=== PATIENT | male | born 1970 | race African-American/Black ===

== ENCOUNTER 2021-05-12 20:12 | Emergency (ER) | payer OTHER ==
[2021-05-12] MEDS ORDERED: Ketorolac 60 MG/2 ML SDV IM ONE (21:58)
[2021-05-12] MEDS ORDERED: Diphtheria,Pertussis(Acell),Tetanus Vaccine 0.5 ML Syringe IM ONE (21:58)
--- NOTE | 2021-05-12 22:00 | EDM.PDOC ---
ED HPI GENERAL MEDICAL PROBLEM - General Chief Complaint: Burn Stated Complaint: BURN RT ARM Time Seen by Provider: 05/12/21 21:51 Source of Information: Reports: Patient History Limitations: Reports: No Limitations - History of Present Illness INITIAL COMMENTS - FREE TEXT/NARRATIVE: HISTORY AND PHYSICAL: History of present illness: The patient is a 50-year-old male who presents to the emergency department with complaints of and a right forearm burn that he sustained at 6:30 PM this evening while taking a radiator cap off of his semi-. The patient states that he was sprayed with the radiator fluid which he then rinsed off and helped a cool cloth on the area. He did not take any medication prior to his arrival and he is unsure when his last tetanus was. Review of systems: As per history of present illness and below otherwise all systems reviewed and negative. Past medical history: As per history of present illness and as reviewed below otherwise noncontributor y. Surgical history: As per history of present illness and as reviewed below otherwise noncontributory. Social history: See social history for further information Family history: As per history of present illness and as reviewed below otherwise noncontributory. Physical exam: General: Well developed and well nourished. Alert and orientated x 3. Nontoxic in appearance and in no acute distress. Vital signs are stable and have been reviewed by me. Nursing notes were reviewed. HEENT: Atraumatic, normocephalic, pupils equal and reactive bilaterally, negative for conjunctival pallor or scleral icterus, mucous membranes moist, TMs normal bilaterally, throat clear, neck supple, nontender, trachea midline. No drooling or trismus noted. No meningeal signs. No hot potato voice noted. Lungs: Clear to auscultation bilaterally. No wheezes, rales, or rhonchi. Chest nontender. Normal work of breathing, no accessory muscles used. Heart: S1S2, regular rate and rhythm without overt murmur, gallops, or rubs. No JVD. No peripheral edema Abdomen: Soft, nondistended, nontender. Normoactive bowel sounds. Negative for masses or costovertebral tenderness. Skin: Right forearm partial thickness burn blister not intact. Skin warm & dry. No lesions or rashes noted. Hematologic: No petechiae or purpra. Mucosa appropriate color and normal nail bed color and refill. Extremities: Atraumatic, moves all extremities per self without difficulty or deficits, negative for cords or calf pain. Neurovascular unremarkable. Neuro: Awake, alert, oriented. Cranial nerves II through XII unremarkable. Cerebellum unremarkable. Motor and sensory unremarkable throughout. Exam nonfocal. Psychiatric: Mood and affect are appropriate. Normal thought process. Answering questions appropriately. Notes: *This patient was seen and evaluated during the 2019 SARS-CoV-2 novel coronavirus pandemic period. Community viral transmission is ongoing at time of this encounter and the emergency department is operating under pandemic response procedures. 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 The patient does not know when his last tetanus was so we will treat him with a tetanus vaccination. I will treat his pain with Toradol 60 mg IM. I have deroofed the partial-thickness burn on his right forearm which measures 6 cm in diameter. I have applied bacitracin ointment covered with a nonstick adhesive dressing applied gauze Cehrry and secured with tape. The patient tolerated the procedure well. I will prescribe bacitracin ointment with instructions for a daily dressing change. I have talked with the patient about today's findings, in addition to providing specific details for plan of care. Reassessment at the time of disposition demonstrates that the patient is in no acute distress. The patient is stable for discharge, counseling was provided and we discussed in great detail signs and symptoms that would prompt them to return to the Emergency Department. Medication, follow up and supportive care measures were reviewed and discussed. Voices understanding and is agreeable to plan of care. Denies any further questions or concerns at this time. Therapeutics: Tdap and Toradol 60 mg IM Prescription: Trace and ointment to be applied once to twice daily until healed. Impression: Partial-thickness forearm burn Plan: 1. You were evaluated today on an emergent basis. Your evaluated for your partial-thickness burn on your right forearm. You received a tetanus vaccination. You received Toradol 60 mg IM for your pain control. The blister was removed from your arm to allow healing. Bacitracin ointment was applied and a dressing. You need to remove the dressing daily and apply bacitracin and a clean dressing to your arm until healed. If you notice signs and symptoms of infection please return to the emergency room. 2. You can alternate Tylenol and ibuprofen as needed for pain and fever management. 3. We encourage you to follow up with your primary care provider and/or recommended specialist in the next few days for re-evaluation and further care/management. 4. If your symptoms should worsen, new symptoms develop or any of the signs and symptoms we discussed should arise please return to the emergency room or call 911 (if needed). Definitive disposition and diagnosis as appropriate pending reevaluation and review of above. Right Arm Pain Score (Numeric/FACES): 3 - Related Data Allergies Allergy/AdvReac Type Severity Reaction Status Date / Time No Known Allergies Allergy Verified 05/12/21 21:45 Home Meds: Home Meds Bacitracin [Bacitracin Oint] 14 gm .XX DAILY 10 Days #1 tube 05/12/21 [Rx] Past Medical History - Past Health History Medical/Surgical History: Denies Medical/Surgical History - Infectious Disease History Infectious Disease History: Reports: Shingles Social & Family History - Family History Family Medical History: No Pertinent Family History - Tobacco Use Tobacco Use Status *Q: Never Tobacco User - Caffeine Use Caffeine Use: Reports: Coffee - Recreational Drug Use Recreational Drug Use: No ED ROS GENERAL - Review of Systems Review Of Systems: Comprehensive ROS is negative, except as noted in HPI. ED EXAM, BURN/SMOKE INHALATION - Physical Exam Exam: See Below (See dictation) Course - Vital Signs Last Recorded V/S: Last Vital Signs Temp 98.0 F 05/12/21 21:46 Pulse 86 05/12/21 21:46 Resp 18 05/12/21 21:46 BP 106/73 05/12/21 21:46 Pulse Ox 96 05/12/21 21:46 - Orders/Labs/Meds Meds: Medications Discontinued Medications Generic Name Dose Route Start Last Admin Trade Name Freq PRN Reason Stop Dose Admin Bacitracin 3 dose 05/12/21 22:25 Bacitracin Oint 1 Gm U/D Packet TOP 05/12/21 22:26 ONETIME ONE Diphtheria/Tetanus/Acell Pertussis 0.5 ml 05/12/21 21:58 05/12/21 22:12 Diphtheria,Pertussis(Acell),Tetanus Vaccine 0.5 Ml Syringe IM 07/02/21 21:59 0.5 ml .ONCE ONE Administration Ketorolac Tromethamine 60 mg 05/12/21 21:58 05/12/21 22:10 Ketorolac 60 Mg/2 Ml Sdv IM 05/12/21 21:59 60 mg ONETIME ONE Administration Departure - Departure Time of Disposition: 22:47 Disposition: Home, Self-Care 01 Condition: Good Clinical Impression: Partial thickness burn - Discharge Information *PRESCRIPTION DRUG MONITORING PROGRAM REVIEWED*: Not Applicable *COPY OF PRESCRIPTION DRUG MONITORING REPORT IN PATIENT GERRY: Not Applicable Prescriptions: Bacitracin [Bacitracin Oint] 14 gm .XX DAILY 10 Days #1 tube Instructions: Burn Care, Adult, [id number] Referrals: PCP,None [Primary Care Provider] - Forms: ED Department Discharge Additional Instructions: The following information is given to patients seen in the emergency department who are being discharged to home. This information is to outline your options for follow-up care. We provide all patients seen in our emergency department with a follow-up referral. The need for follow-up, as well as the timing and circumstances, are variable depending upon the specifics of your emergency department visit. If you don't have a primary care physician on staff, we will provide you with a referral. We always advise you to contact your personal physician following an emergency department visit to inform them of the circumstance of the visit and for follow-up with them and/or the need for any referrals to a consulting specialist. The emergency department will also refer you to a specialist when appropriate. This referral assures that you have the opportunity for follow-up care with a specialist. All of these measure are taken in an effort to provide you with optimal care, which includes your follow-up. Under all circumstances we always encourage you to contact your private physician who remains a resource for coordinating your care. When calling for follow-up care, please make the office aware that this follow-up is from your recent emergency room visit. If for any reason you are refused follow-up, please contact the [facility] Emergency Department at and asked to speak to the emergency department charge nurse. [facility] [address] [place] [address] [id number] [place] [address] Plan: 1. You were evaluated today on an emergent basis. Your evaluated for your partial-thickness burn on your right forearm. You received a tetanus vaccination. You received Toradol 60 mg IM for your pain control. The blister was removed from your arm to allow healing. Bacitracin ointment was applied and a dressing. You need to remove the dressing daily and apply bacitracin and a clean dressing to your arm until healed. If you notice signs and symptoms of infection please return to the emergency room. 2. You can alternate Tylenol and ibuprofen as needed for pain and fever management. 3. We encourage you to follow up with your primary care provider and/or recommended specialist in the next few days for re-evaluation and further care/management. 4. If your symptoms should worsen, new symptoms develop or any of the signs and symptoms we discussed should arise please return to the emergency room or call 911 (if needed). Sepsis Event Note (ED) - Evaluation Sepsis Screening Result: No Definite Risk
[2021-05-12] MEDS ORDERED: Bacitracin Oint 1 GM U/D Packet TOP ONE (22:25)
== END 2021-05-12 23:40 | disposition home or self-care (01) ==
LOC: MW.ED 20:12
DX: T22.211A Burn of second degree of right forearm, initial encounter (principal); Z23 Encounter for immunization; X12.XXXA Contact with other hot fluids, initial encounter
CPT/HCPCS: 90471; 90715; 96372; 99283; J1885